=== PATIENT | female | born 1990 | race Caucasian/White ===

== ENCOUNTER → 2020-05-17 | Outpatient (CLI) | payer MEDICAID ==
[~2020-05-17] VITALS: Ht 170.2 cm; Wt 134.1 kg
[~2020-05-17] MED LIST: MOTRIN 800800 MG/TAB PO; PRENATAL; VALTREX 50500 MG/TAB PO
--- NOTE | 2020-05-17 19:15 | NUR ---
and 39 weeks and 2 days arrives to unit ambulatory with complaint of pressure and occasional low back pain. Pt states she walks a lot at work and started to feel increased pelvic pressure and has had more mucousy discharge. Pt states she was on bedrest with first 2 due to threatened labor. First 2 children were given up for adoption. Pt denies headaches, RUQ pain, or changes in vision. US and toco explained and applied. Admission assessment started. SVE /-2
[2020-05-17 19:30] VITALS: BP 130/59; PULSE 83; TEMP 98.4
[2020-05-17 20:35] VITALS: BP 116/60; PULSE 83
--- NOTE | 2020-05-17 20:55 | NUR ---
Pt discharged home at this time. Discharge instructions and return precautions reviewed, pt verbalized understanding. All questions answered. Pt seen ambulating off unit.
== END ==
LOC: LDRO 19:10
DX: O26.893 Other specified pregnancy related conditions, third trimester (principal); Z3A.39 39 weeks gestation of pregnancy

== ENCOUNTER 2020-05-23 09:24 | Inpatient (IN) | payer MEDICAID ==
[2020-05-23] VITALS (18 sets, daily range): BP systolic 90–147; BP diastolic 50–87; PULSE 70–98; TEMP 97.8–98.3
[~2020-05-23] VITALS: Ht 170.2 cm; Wt 134.1 kg
[~2020-05-23 09:24] MED LIST changes: -MOTRIN 800800 MG/TAB PO
--- NOTE | 2020-05-23 09:35 | NUR ---
Pt here with c/o contractions every 2 minutes and ?SROM. Pt to LDR 3 and into gown. To EFM, explained. G4L3, 40.1 weeks gestation. SVE: /-2, bulgy bag of heaton palpated. FHR reactive. VSS. Dr Breaux called at 0941 and message left with eleuterio. Order to admit and may get an epidural. IV started to left wrist. Lab work obtained and sent to lab. LR bolus infusing. Avelina LANDERS called and notified. She will be on her way for epidural. Assessment complete, GBS negative and hx of HSV. Pt taking Valtrex po QD. 1000:Dr Breaux here and at bedside. 1003:Avelina LANDERS at bedside and pt positioned to sitting up. Epidural placed. Single shot given at 1011 and test dose given to 1014. Pt tolerated well. See anesthesia notes. 1025:Dr Breaux here and SVE: /-1. AROM, meconium fluid noted. Pericare done and pt repositioned.
[2020-05-23 10:08] LABS: BASO % 0.2 % (0.0-2.0); EOS # 0.1 (0.0-0.7); EOS % 0.9 % (0-4.0); GRAN # 7.3 (1.4-6.5); GRAN % 74.6 % (42.2-75.2); HEMATOCRIT 38.7 % (37.0-47.0); HEMOGLOBIN 12.6 g/dl (12.5-16.0); LYMPH # 1.7 (1.2-3.4); LYMPH % 17.1 % (20.0-51.0); MEAN CELL VOLUME 88 fl (80.0-100.0); MEAN CORPUSCULAR HEMOGLOBIN 29 pg (27.0-31.0); MEAN CORPUSCULAR HGB CONC 33 g/dl (33.0-37.0); MEAN PLATELET VOLUME 10.6 fl (7.4-10.4); MONO # 0.6 (0.1-0.6); MONO % 6.6 % (1.7-9.3); PLATELET COUNT 180 K/mm3 (130-400); RED BLOOD COUNT 4.42 M/mm3 (4.10-5.30); REDCELL DISTRIBUTION WIDTH-CV 15.2 % (11.5-14.5)
--- NOTE | 2020-05-23 11:00 | NUR ---
Dr Breaux here and orders received to start pitocin at 2mu. Pitocin started per orders. BP 88/51, pt c/o feeling lightheaded and nauseated. Ephedrine 10mg given IV. See EMAR. 1115:SVE by Dr Breaux. 100/0. 1130:SVE by Dr Breaux. +2. Pt prepped for delivery. 1135:Pt begins pushing with contractions. Pushes for 10 minutes. 1144: of infants head and shoulders. light meconium fluid noted with delivery. Infant to mother's abd and in care of Lynn PAULA. 1145:Spontaneous delivery of placenta. LR with pitocin infusing at 333mu/hr per protocol. Fundus massaged, firm. Bleeding is WNL. 2nd degree lac repaired per Dr Breaux. Pericare performed and straight catheter used per physician. Approximately 200ml urine. EBL 300cc. Pt sitting up in bed holding infant.
--- NOTE | 2020-05-23 14:00 | NUR ---
Pt up to bathroom with assist, voids 300cc urine. Pericare instructions given. Pt ambulates to room 208.
[2020-05-24] MEDS ORDERED: MOTRIN 800800 MG/TAB PO (02:14)
[2020-05-24 05:50] VITALS: BP 123/67; PULSE 72; TEMP 97.9
[2020-05-24 07:50] VITALS: BP 125/71; PULSE 86; TEMP 97.9
--- NOTE | 2020-05-24 08:05 | NUR ---
Initial visit; Parents thanked Chief Medical Physicist for offering congratulations for the of their son and God's blessings for their family.
[2020-05-24 11:12] VITALS: BP 121/69; PULSE 81; TEMP 98.1
[2020-05-24 17:07] VITALS: BP 117/54; PULSE 68; TEMP 98.1
[2020-05-24 20:13] VITALS: BP 135/65; PULSE 76; TEMP 97.6
[2020-05-25 09:55] VITALS: BP 143/79; PULSE 93; TEMP 98.2
[2020-05-25] MEDS ORDERED: MOTRIN 800800 MG/TAB PO (12:08)
== END 2020-05-25 14:00 | disposition home or self-care (01) | DRG 807 ==
LOC: LDRO 09:24 → EDSTATUS 09:46 → LDR 10:06 → OB 10:06
PROVIDERS: ADMIT Obstetrics & Gynecology
PROC: 10E0XZZ Delivery of Products of Conception, External Approach (ICD-10-PCS; principal; 2020-05-23)
PROC: 0KQM0ZZ Repair Perineum Muscle, Open Approach (ICD-10-PCS; 2020-05-23)
PROC: 10907ZC Drainage of Amniotic Fluid, Therapeutic from Products of Conception, Via Natural or Artificial Opening (ICD-10-PCS; 2020-05-23)
DX: O99.214 Obesity complicating childbirth (principal); Z37.0 Single live birth; E66.9 Obesity, unspecified; O70.1 Second degree perineal laceration during delivery; O77.0 Labor and delivery complicated by meconium in amniotic fluid; Z3A.40 40 weeks gestation of pregnancy
CPT/HCPCS: J2590; J7120

== ENCOUNTER 2022-07-29 08:26 | Emergency (ER) | payer MEDICAID ==
[~2022-07-29] VITALS: Ht 167.6 cm; Wt 113.6 kg
[~2022-07-29 08:26] MED LIST changes: +MOTRIN 800800 MG/TAB PO
[2022-07-29 08:33] VITALS: TEMP 97.8
[2022-07-29] MEDS ORDERED: CRUTCHES MC (09:11)
[2022-07-29 09:35] VITALS: BP 112/76; PULSE 69
== END 2022-07-29 09:35 | disposition home or self-care (01) ==
LOC: COL.ER 08:26
DX: S82.831A Other fracture of upper and lower end of right fibula, initial encounter for closed fracture (principal); M93.271 Osteochondritis dissecans, right ankle and joints of right foot; W17.2XXA Fall into hole, initial encounter; X50.1XXA Overexertion from prolonged static or awkward postures, initial encounter
CPT/HCPCS: L4386